=== PATIENT | male | born 1960 | race Caucasian/White ===

== ENCOUNTER 2019-03-17 02:56 | Emergency (ER) | payer OTHER ==
[~2019-03-17] VITALS: Ht 175.3 cm; Wt 77.0 kg
--- NOTE | 2019-03-17 03:12 | NUR ---
O2 SATS SOMETIMES DROP IN THE MID 80S ON ROOM AIR. O2 VIA NC APPLIED TO MAINTAIN GREATER THAN 90%
[2019-03-17] MEDS ORDERED: MORPHINE SULFATE 4 MG/ML, 1ML IVPush PRN (03:30)
[2019-03-17] MEDS ORDERED: SODIUM CHLORIDE 0.9% 1,000ML IVBOLUS ONE (03:30)
[2019-03-17] MEDS ORDERED: PROMETHAZINE 25 MG/ML, 1ML ONE (03:32)
[2019-03-17 03:35] LABS: BASOPHILS # (AUTO) 0.01 x10^3/uL (0-0.1); BASOPHILS % (AUTO) 0 % (0-1); EOSINOPHILS # (AUTO) 0.08 x10^3/uL (0-0.4); EOSINOPHILS % (AUTO) 1 % (1-7); LYMPHOCYTES # (AUTO) 0.66 x10^3/uL (1-3.4); LYMPHOCYTES % (AUTO) 8 % (22-44); MD NO; MEAN CORPUSCULAR HEMOGLOBIN 24.6 pg (27.5-34.5); MEAN CORPUSCULAR HGB CONC 31.9 g/dL (33.2-36.2); MEAN CORPUSCULAR VOLUME 77.2 fL (81-97); MEAN PLATELET VOLUME 9.7 fL (7.4-10.4); MONOCYTES # (AUTO) 0.62 x10^3/uL (0.2-0.8); MONOCYTES % (AUTO) 7 % (2-9); NEUTROPHILS # (AUTO) 7.43 x10^3/uL (1.8-6.8); NEUTROPHILS % (AUTO) 84 % (42-75); PLATELET COUNT 238 x10^3/uL (130-400); RED BLOOD COUNT 6.36 x10^6/uL (4.38-5.82)
--- NOTE | 2019-03-17 03:39 | NUR ---
BIB [facility], PT RAN OUT OF INSULIN A COUPLE OF DAYS AGO AND NOW WITH SYMPTOMS N/V, BLOOD SUGAR HIGH. SYMPTOMS WORESENED TODAY. BLOOD SUGAR READ 'HIGH' FOR [facility]. pt attached to all monitors. call light within reach. pt sleeping on gurney, respirations even and unlabored.
[2019-03-17 03:45] LABS: ALANINE AMINOTRANSFERASE 27 U/L (12-78); ALBUMIN 3.5 g/dL (3.4-5.0); ANION GAP 15 mmol/L (5-15); CALCIUM 9.1 mg/dL (8.5-10.1); CHLORIDE 96 mmol/L (98-107); CREATININE 1.78 mg/dL (0.7-1.3)
[2019-03-17 03:48] LABS: ALKALINE PHOSPHATASE 64 U/L (45-117); BILIRUBIN,TOTAL 1.4 mg/dL (0.2-1.0)
--- NOTE | 2019-03-17 04:00 | NUR ---
pt states he does not feel nausea at this time and does not currently want phenergan
[2019-03-17 04:01] LABS: ACETONE, SERUM Moderate(40mg/dL) mg/dL (Negative)
[2019-03-17] MEDS ORDERED: INSULIN REGULAR 100 UNITS/ML, 3ML VIAL SQ-INSULIN ONE (04:30)
[2019-03-17] MEDS ORDERED: INSULIN SINGLE DOSE, ER ONE (04:33)
[2019-03-17] MEDS: PROMETHAZINE 25 MG/ML, 1ML IM ONE ×2 (04:47→04:53)
[2019-03-17] MEDS ORDERED: ONDANSETRON 2MG/ML, 2ML ONE (04:51)
[2019-03-17] MEDS ORDERED: ONDANSETRON 2MG/ML, 2ML IVPush ONE (05:30)
[2019-03-17 05:37] VITALS: BP 161/96
--- NOTE | 2019-03-17 05:59 | NUR ---
pt refused insulin pen. states he does not want to wait for our pharmacy to send it and he will go get all of his perscriptions fill right now when he leaves the hospital.
[2019-03-17] MEDS ORDERED: INSULIN GLARGINE 100 UNITS/ML, PEN SQ-INSULIN ONE (06:00)
== END 2019-03-17 06:01 | disposition home or self-care (01) ==
LOC: ED 04:43
DX: E86.0 Dehydration (principal); E11.65 Type 2 diabetes mellitus with hyperglycemia; I10 Essential (primary) hypertension
CPT/HCPCS: 36415; 71045; 80053; 82010; 82962; 83690; 85025; 93005; 96361; 96372; 96374; 99284; J1815; J2405; J7030; J2550

== ENCOUNTER 2020-05-25 19:01 | Emergency (ER) | payer OTHER ==
[~2020-05-25] VITALS: Ht 175.3 cm; Wt 71.9 kg
[~2020-05-25 19:01] MED LIST: BUPR2TAB SL; BUPR8TAB SL; DEXT20TA8 PO; INSU100I13 SQ; INSU100I13 SQ-INSULIN; INSU100I13 SUBD; INSU200I SQ; LISI-170 PO; LISI1TAB20 PO; METO-93 PO
--- NOTE | 2020-05-25 19:17 | NUR ---
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
[2020-05-25 20:39] VITALS: BP 157/89
--- NOTE | 2020-05-25 20:39 | NUR ---
pa at bedside to assess. pt in bed with no signs or symptoms of acute distress noted respirations even and unlabored. pt on case monitor with bed rails up bilaterally and call light within reach
== END 2020-05-25 21:17 | disposition home or self-care (01) ==
LOC: ED 20:00
DX: F41.1 Generalized anxiety disorder (principal); I10 Essential (primary) hypertension; R00.0 Tachycardia, unspecified; I25.2 Old myocardial infarction; E11.65 Type 2 diabetes mellitus with hyperglycemia
CPT/HCPCS: 93005; 99283

== ENCOUNTER 2020-07-10 08:21 | Inpatient (IN) | payer OTHER ==
[~2020-07-10] VITALS: Ht 170.2 cm; Wt 77.8 kg
[2020-07-10] MEDS ORDERED: SODIUM CHLORIDE 0.9% 1,000ML IVBOLUS ONE (08:30)
[2020-07-10] MEDS ORDERED: ONDANSETRON 2MG/ML, 2ML IVPush ONE (08:30)
[2020-07-10] MEDS ORDERED: FAMOTIDINE 20 MG/2 ML IVPush ONE (08:30)
[2020-07-10] MEDS ORDERED: SODIUM CHLORIDE FLUSH 10ML SYR IVF ONE (08:30)
[2020-07-10] MEDS ORDERED: FAMOTIDINE 20 MG/2 ML ONE (08:35)
[2020-07-10] MEDS ORDERED: ONDANSETRON 2MG/ML, 2ML ONE (08:35)
--- NOTE | 2020-07-10 09:07 | NUR ---
PT TO CT Addendum: 07/10/20 at 0908 by [facility] PT TO IMAGING
[2020-07-10 09:08] LABS: PH, VENOUS 7.433 pH (7.320-7.420)
[2020-07-10 09:10] LABS: FIO2 ROOMAIR %
[2020-07-10 09:23] LABS: ALANINE AMINOTRANSFERASE 48 U/L (12-78); ALBUMIN 3.7 g/dL (3.4-5.0); ANION GAP 18 mmol/L (5-15); CALCIUM 9.5 mg/dL (8.5-10.1); CHLORIDE 97 mmol/L (98-107); CREATININE 1.52 mg/dL (0.7-1.3)
[2020-07-10 09:26] LABS: ALKALINE PHOSPHATASE 74 U/L (45-117); BILIRUBIN,TOTAL 1.3 mg/dL (0.2-1.0); TOTAL PROTEIN 7.8 g/dL (6.4-8.2)
--- NOTE | 2020-07-10 09:30 | NUR ---
pt unable to provide urine sample at this time.
[2020-07-10] MEDS ORDERED: INSULIN SINGLE DOSE, ER ONE (10:49)
[2020-07-10 10:55] LABS: MICROSCOPIC AUTO
[2020-07-10 10:55] LABS: ACETONE, SERUM Large (80mg/dL) (Negative)
[2020-07-10] MEDS ORDERED: INSULIN REGULAR 100 UNITS/ML, 3ML VIAL SQ-INSULIN ONE (11:00)
[2020-07-10 11:12] LABS: BASOPHILS % (AUTO) 0 % (0-1); EOSINOPHILS % (AUTO) 0 % (1-7); LYMPHOCYTES % (AUTO) 9 % (22-44); MEAN CORPUSCULAR HEMOGLOBIN 24.3 pg (27.5-34.5); MEAN CORPUSCULAR HGB CONC 31.8 g/dL (33.2-36.2); MEAN PLATELET VOLUME 9.5 fL (7.4-10.4); MONOCYTES % (AUTO) 6 % (2-9); NEUTROPHILS % (AUTO) 85 % (42-75); PLATELET COUNT 216 x10^3/uL (130-400); RED BLOOD COUNT 6.03 x10^6/uL (4.38-5.82); RED CELL DISTRIBUTION WIDTH 15.4 % (9.4-14.8)
[2020-07-10 11:22] LABS: MD NO
[2020-07-10] MEDS: SODIUM CHLORIDE 0.9% 1,000 ML IV SCH ×3 (12:00→23:17)
[2020-07-10] MEDS ORDERED: METOCLOPRAMIDE 5 MG/ML, 2ML IVPush PRN (13:00)
[2020-07-10] MEDS ORDERED: TRAZODONE 50MG TABLET PO PRN (13:00)
[2020-07-10] MEDS ORDERED: ACETAMINOPHEN 325 MG TABLET PO PRN (13:00)
[2020-07-10] MEDS ORDERED: ENOXAPARIN 40 MG/0.4 ML ONE (13:16)
[2020-07-10] MEDS ORDERED: INSULIN LISPRO 100 UNITS/ML, PEN ONE (13:16)
[2020-07-10 13:22] LABS: ANION GAP 11 mmol/L (5-15); CALCIUM 8.8 mg/dL (8.5-10.1); CHLORIDE 105 mmol/L (98-107)
[2020-07-10 13:35] LABS: CREATININE 1.43 mg/dL (0.7-1.3)
[2020-07-10 13:37] LABS: TROPONIN I 0.143 ng/mL (0.000-0.045)
[2020-07-10 14:00] LABS: FREE T4 (FREE THYROXINE) 1.04 ng/dL (0.76-1.46)
[2020-07-10] MEDS: INSULIN LISPRO 100 UNITS/ML, PEN SQ-INSULIN SCH ×3 (14:05→22:17)
[2020-07-10] MEDS: ENOXAPARIN 40 MG/0.4 ML SQ SCH (14:07)
[2020-07-10 15:42] VITALS: BP 165/98
[2020-07-10] MEDS: INSULIN GLARGINE 100 UNITS/ML, PEN SQ-INSULIN SCH (17:05)
[2020-07-10 19:00] LABS: ANION GAP 6 mmol/L (5-15); CALCIUM 8.8 mg/dL (8.5-10.1); CHLORIDE 109 mmol/L (98-107); CREATININE 1.25 mg/dL (0.7-1.3)
[2020-07-10 19:34] VITALS: BP 178/96
[2020-07-10] MEDS: ONDANSETRON 2MG/ML, 2ML IVPush PRN (22:16)
[2020-07-11 00:44] LABS: ANION GAP 6 mmol/L (5-15); CALCIUM 8.7 mg/dL (8.5-10.1); CHLORIDE 110 mmol/L (98-107)
[2020-07-11 01:06] VITALS: BP 200/106
[2020-07-11] MEDS: INSULIN LISPRO 100 UNITS/ML, PEN SQ-INSULIN SCH ×6 (01:36→21:47)
[2020-07-11] MEDS ORDERED: LABETALOL 5MG/ML, 20ML IVPush ONE (02:30)
[2020-07-11] MEDS: BUPRENORPHINE HCL 2 MG TAB.SUBL SL SCH (02:52)
[2020-07-11 03:25] VITALS: BP 184/110
[2020-07-11 05:26] LABS: BASOPHILS % (AUTO) 0 % (0-1); EOSINOPHILS % (AUTO) 0 % (1-7); LYMPHOCYTES % (AUTO) 10 % (22-44); MEAN CORPUSCULAR HEMOGLOBIN 24.6 pg (27.5-34.5); MEAN CORPUSCULAR HGB CONC 32.8 g/dL (33.2-36.2); MEAN PLATELET VOLUME 9.9 fL (7.4-10.4); MONOCYTES % (AUTO) 8 % (2-9); NEUTROPHILS % (AUTO) 81 % (42-75); PLATELET COUNT 191 x10^3/uL (130-400)
[2020-07-11 05:28] VITALS: BP 132/80
[2020-07-11 05:28] LABS: MD NO
[2020-07-11 07:32] LABS: ANION GAP 7 mmol/L (5-15); CALCIUM 8.8 mg/dL (8.5-10.1); CHLORIDE 108 mmol/L (98-107); CREATININE 0.99 mg/dL (0.7-1.3)
[2020-07-11 07:36] LABS: TROPONIN I 0.128 ng/mL (0.000-0.045)
[2020-07-11 08:22] VITALS: BP 168/98
[2020-07-11] MEDS ORDERED: HYDROCHLOROTHIAZIDE 25 MG TABLET PO SCH (09:00)
[2020-07-11] MEDS ORDERED: BUPRENORPHINE HCL 2 MG TAB.SUBL SL SCH ×2 (09:00)
[2020-07-11] MEDS: LISINOPRIL 20 MG TABLET PO SCH (09:32)
[2020-07-11] MEDS: METOPROLOL SUCCINATE 50 MG TAB.ER.24H PO SCH (09:33)
[2020-07-11] MEDS: INSULIN GLARGINE 100 UNITS/ML, PEN SQ-INSULIN SCH (09:33)
[2020-07-11 12:22] VITALS: BP 128/82
[2020-07-11 12:47] LABS: ANION GAP 5 mmol/L (5-15); CALCIUM 8.6 mg/dL (8.5-10.1); CHLORIDE 108 mmol/L (98-107); CREATININE 1.03 mg/dL (0.7-1.3)
[2020-07-11] MEDS ORDERED: OMNIPAQUE 350 MG/ML, 100ML BOTTLE ONE (13:15)
[2020-07-11] MEDS: ENOXAPARIN 40 MG/0.4 ML SQ SCH (14:01)
[2020-07-11] MEDS: POLYETHYLENE GLYCOL 17 GM PACKET PO SCH ×2 (16:06→21:00)
[2020-07-11] MEDS: METOCLOPRAMIDE 5 MG/ML, 2ML IVPush SCH ×2 (16:07→21:01)
[2020-07-11 18:54] LABS: ANION GAP 3 mmol/L (5-15); CALCIUM 8.6 mg/dL (8.5-10.1); CHLORIDE 107 mmol/L (98-107); CREATININE 1.09 mg/dL (0.7-1.3)
[2020-07-11 20:04] VITALS: BP 147/75
[2020-07-11] MEDS: SENNOSIDES 8.6 MG TABLET PO SCH (21:00)
[2020-07-12 01:01] LABS: ANION GAP 2 mmol/L (5-15); CALCIUM 8.5 mg/dL (8.5-10.1); CHLORIDE 108 mmol/L (98-107); CREATININE 1.19 mg/dL (0.7-1.3)
[2020-07-12 01:13] VITALS: BP 180/95
[2020-07-12] MEDS: INSULIN LISPRO 100 UNITS/ML, PEN SQ-INSULIN SCH ×5 (01:33→21:28)
[2020-07-12] MEDS: BUPRENORPHINE HCL 2 MG TAB.SUBL SL SCH ×2 (02:17→13:35)
[2020-07-12 03:33] VITALS: BP 155/96
[2020-07-12] MEDS: METOCLOPRAMIDE 5 MG/ML, 2ML IVPush SCH ×4 (03:41→21:21)
[2020-07-12 05:24] VITALS: BP 103/68
[2020-07-12] MEDS: METOPROLOL SUCCINATE 50 MG TAB.ER.24H PO SCH (05:29)
[2020-07-12 06:46] LABS: ANION GAP 2 mmol/L (5-15); CALCIUM 8.7 mg/dL (8.5-10.1); CHLORIDE 108 mmol/L (98-107)
[2020-07-12 06:50] LABS: TROPONIN I 0.027 ng/mL (0.000-0.045)
[2020-07-12 08:10] VITALS: BP 127/80
[2020-07-12] MEDS: POLYETHYLENE GLYCOL 17 GM PACKET PO SCH ×3 (08:48→21:21)
[2020-07-12] MEDS: SENNOSIDES 8.6 MG TABLET PO SCH ×2 (08:48→21:21)
[2020-07-12] MEDS: LISINOPRIL 20 MG TABLET PO SCH (08:49)
[2020-07-12] MEDS ORDERED: INSULIN GLARGINE 100 UNITS/ML, PEN SQ-INSULIN SCH (09:00)
[2020-07-12] MEDS ORDERED: ACETAMINOPHEN 325 MG TABLET PO PRN (11:00)
[2020-07-12] MEDS: SODIUM CHLORIDE 0.9% 1,000 ML IV SCH (11:02)
[2020-07-12] MEDS ORDERED: BISACODYL 10 MG SUPP ONE (13:20)
[2020-07-12] MEDS ORDERED: BISACODYL 10 MG SUPP PR PRN (13:30)
[2020-07-12] MEDS: ENOXAPARIN 40 MG/0.4 ML SQ SCH (13:34)
[2020-07-12 13:52] VITALS: BP 132/81
[2020-07-12] MEDS: CARVEDILOL 3.125 MG TABLET PO SCH (18:28)
[2020-07-12 20:07] VITALS: BP 127/77
[2020-07-13 01:26] VITALS: BP 99/61
[2020-07-13] MEDS: METOCLOPRAMIDE 5 MG/ML, 2ML IVPush SCH ×4 (02:55→22:41)
[2020-07-13] MEDS: SODIUM CHLORIDE 0.9% 1,000 ML IV SCH ×2 (02:55→22:40)
[2020-07-13 04:45] LABS: BASOPHILS % (AUTO) 1 % (0-1); EOSINOPHILS % (AUTO) 1 % (1-7); LYMPHOCYTES % (AUTO) 55 % (22-44); MEAN CORPUSCULAR HEMOGLOBIN 24.4 pg (27.5-34.5); MEAN CORPUSCULAR HGB CONC 32.4 g/dL (33.2-36.2); MEAN PLATELET VOLUME 9.7 fL (7.4-10.4); MONOCYTES % (AUTO) 12 % (2-9); NEUTROPHILS % (AUTO) 31 % (42-75); PLATELET COUNT 142 x10^3/uL (130-400); RED CELL DISTRIBUTION WIDTH 14.8 % (9.4-14.8)
[2020-07-13 05:26] VITALS: BP 109/68
[2020-07-13] MEDS: CARVEDILOL 3.125 MG TABLET PO SCH ×2 (05:28→18:25)
[2020-07-13 05:50] LABS: MD SCAN
[2020-07-13 06:10] LABS: AMPHETAMINE SCREEN, URINE Negative (Negative); BARBITURATE SCREEN, URINE Negative (Negative); BENZODIAZEPINE SCREEN, URINE Positive (Negative); CANNABINOID SCREEN, URINE Positive (Negative); COCAINE SCREEN, URINE Negative (Negative); METHADONE SCREEN, URINE Negative (Negative); OPIATE SCREEN, URINE Negative (Negative)
[2020-07-13 07:48] VITALS: BP 121/76
[2020-07-13] MEDS: INSULIN LISPRO 100 UNITS/ML, PEN SQ-INSULIN SCH ×4 (08:03→22:40)
[2020-07-13] MEDS: SENNOSIDES 8.6 MG TABLET PO SCH ×2 (08:04→21:00)
[2020-07-13] MEDS: POLYETHYLENE GLYCOL 17 GM PACKET PO SCH ×3 (08:04→21:00)
[2020-07-13] MEDS: LISINOPRIL 20 MG TABLET PO SCH (08:04)
[2020-07-13] MEDS: BUPRENORPHINE HCL 2 MG TAB.SUBL SL SCH (08:04)
[2020-07-13] MEDS ORDERED: INSULIN GLARGINE 100 UNITS/ML, PEN SQ-INSULIN SCH (09:00)
[2020-07-13] MEDS: ONDANSETRON 2MG/ML, 2ML IVPush PRN (11:09)
[2020-07-13 12:40] VITALS: BP 107/71
[2020-07-13] MEDS: ENOXAPARIN 40 MG/0.4 ML SQ SCH (14:08)
[2020-07-13 20:45] VITALS: BP 94/57
[2020-07-14] VITALS (10 sets, daily range): BP systolic 78–138; BP diastolic 47–80
[2020-07-14] MEDS: METOCLOPRAMIDE 5 MG/ML, 2ML IVPush SCH ×4 (02:55→21:30)
[2020-07-14] MEDS ORDERED: SODIUM CHLORIDE 0.9% 1,000ML IVBOLUS ONE (03:30)
[2020-07-14 04:46] LABS: ANION GAP 5 mmol/L (5-15); CALCIUM 7.9 mg/dL (8.5-10.1); CHLORIDE 107 mmol/L (98-107)
[2020-07-14 04:49] LABS: CREATININE 0.89 mg/dL (0.7-1.3)
[2020-07-14] MEDS ORDERED: POTASSIUM CHLORIDE 20 MEQ TAB.ER.PRT PO ONE (08:30)
[2020-07-14] MEDS: BUPRENORPHINE HCL 2 MG TAB.SUBL SL SCH (08:37)
[2020-07-14] MEDS: INSULIN LISPRO 100 UNITS/ML, PEN SQ-INSULIN SCH ×4 (08:38→22:01)
[2020-07-14] MEDS: INSULIN GLARGINE 100 UNITS/ML, PEN SQ-INSULIN SCH (08:40)
[2020-07-14] MEDS: POLYETHYLENE GLYCOL 17 GM PACKET PO SCH ×3 (08:47→21:00)
[2020-07-14] MEDS: SENNOSIDES 8.6 MG TABLET PO SCH ×2 (08:48→21:00)
[2020-07-14] MEDS: LISINOPRIL 10 MG TABLET PO SCH (11:42)
[2020-07-14] MEDS: SODIUM CHLORIDE 0.9% 1,000 ML IV SCH ×2 (11:45→22:02)
[2020-07-14] MEDS: ENOXAPARIN 40 MG/0.4 ML SQ SCH (14:12)
[2020-07-14] MEDS ORDERED: CARVEDILOL 3.125 MG TABLET PO SCH (21:00)
[2020-07-15] MEDS: METOCLOPRAMIDE 5 MG/ML, 2ML IVPush SCH ×2 (00:02→09:30)
[2020-07-15 00:41] VITALS: BP 124/75
[2020-07-15 06:00] LABS: BASOPHILS % (AUTO) 1 % (0-1); EOSINOPHILS % (AUTO) 4 % (1-7); LYMPHOCYTES % (AUTO) 58 % (22-44); MEAN CORPUSCULAR HEMOGLOBIN 24.5 pg (27.5-34.5); MEAN CORPUSCULAR HGB CONC 32.7 g/dL (33.2-36.2); MONOCYTES % (AUTO) 10 % (2-9); NEUTROPHILS % (AUTO) 28 % (42-75); PLATELET COUNT 113 x10^3/uL (130-400); RED BLOOD COUNT 4.44 x10^6/uL (4.38-5.82); RED CELL DISTRIBUTION WIDTH 14.3 % (9.4-14.8)
[2020-07-15 06:01] LABS: MD NO
[2020-07-15 06:12] LABS: CHLORIDE 112 mmol/L (98-107)
[2020-07-15 06:20] LABS: % IRON SATURATION 42 % (20-55); ANION GAP 4 mmol/L (5-15); CALCIUM 7.8 mg/dL (8.5-10.1); CREATININE 0.65 mg/dL (0.7-1.3); IRON LEVEL 70 mcg/dL (65-175); TOTAL IRON BINDING CAPACITY 168 mcg/dL (250-450)
[2020-07-15 07:25] VITALS: BP 180/89
[2020-07-15] MEDS: SODIUM CHLORIDE 0.9% 1,000 ML IV SCH (07:30)
[2020-07-15] MEDS: POLYETHYLENE GLYCOL 17 GM PACKET PO SCH (08:00)
[2020-07-15] MEDS: SENNOSIDES 8.6 MG TABLET PO SCH (08:00)
[2020-07-15] MEDS: BUPRENORPHINE HCL 2 MG TAB.SUBL SL SCH (08:04)
[2020-07-15] MEDS: LISINOPRIL 10 MG TABLET PO SCH (08:05)
[2020-07-15] MEDS: INSULIN LISPRO 100 UNITS/ML, PEN SQ-INSULIN SCH (08:18)
[2020-07-15] MEDS: INSULIN GLARGINE 100 UNITS/ML, PEN SQ-INSULIN SCH (08:18)
[2020-07-15] MEDS ORDERED: MAGNESIUM CITRATE 300ML ORAL SOL PO ONE (08:30)
[2020-07-15] MEDS ORDERED: LISI-167 PO (10:30)
[2020-07-15] MEDS ORDERED: INSU100I13 SUBD (10:30)
[2020-07-15] MEDS ORDERED: CARV3.1212 PO (10:30)
[2020-07-16] MEDS ORDERED: SODIUM CHLORIDE 0.9% 1,000 ML IV SCH (03:30)
== END 2020-07-15 11:51 | disposition home or self-care (01) | DRG 637 ==
LOC: ED 08:27 → EDIP 11:56 → 5SO 16:35 → DCLOUNGE 07-15 11:35
PROVIDERS: ADMIT Hospitalist; ATTEND Internal Medicine
DX: E11.10 Type 2 diabetes mellitus with ketoacidosis without coma (principal); I21.A1 Myocardial infarction type 2; R65.10 Systemic inflammatory response syndrome (SIRS) of non-infectious origin without acute organ dysfunction; B18.1 Chronic viral hepatitis B without delta-agent; N17.9 Acute kidney failure, unspecified; F11.20 Opioid dependence, uncomplicated; E11.43 Type 2 diabetes mellitus with diabetic autonomic (poly)neuropathy; I95.9 Hypotension, unspecified; E86.1 Hypovolemia; D64.9 Anemia, unspecified; E86.0 Dehydration; E87.6 Hypokalemia; K31.84 Gastroparesis; G89.29 Other chronic pain; I10 Essential (primary) hypertension; K59.03 Drug induced constipation; K76.0 Fatty (change of) liver, not elsewhere classified; T40.605A Adverse effect of unspecified narcotics, initial encounter; I25.2 Old myocardial infarction; Z79.4 Long term (current) use of insulin
CPT/HCPCS: 36415; 74021; 74177; 80048; 80053; 80307; 81001; 82010; 82803; 82962; 83036; 83540; 83550; 83690; 83735; 84100; 84439; 84443; 84481; 84484; 85025; 93005; 93306; 96374; G0378; J1650; J2405; Q9967; J1815; J2765; J7030